=== PATIENT | female | born 1960 | race Hispanic/Latino ===

== ENCOUNTER → 2020-01-13 08:53 | Outpatient (CLI) | payer BC, OTHER, SELFPAY ==
--- NOTE | 2020-01-13 08:57 | DI.MG.S_ITS ---
BILATERAL DIGITAL SCREENING MAMMOGRAM 3D/2D WITH CAD: 01/13/2020 CLINICAL: Routine screening. Family history of breast cancer. Comparison is made to exams dated: 11/26/2017 mammogram, 02/18/2017 mammogram, and 11/21/2018 mammogram - [facility]. The tissue of both breasts is heterogeneously dense. This may lower the sensitivity of mammography. Current study was also evaluated with a Computer Aided Detection (CAD) system. No significant masses, calcifications, or other findings are seen in either breast. There has been no significant interval change. IMPRESSION: NEGATIVE There is no mammographic evidence of malignancy. A 1 year screening mammogram is recommended. This exam was interpreted at Station ID: [id number]. NOTE: For mammograms, a report in lay terms will be sent to the patient. Approximately 15% of breast malignancies will not be visualized mammographically. In the management of a palpable breast mass, a negative mammogram must not discourage biopsy of a clinically suspicious lesion. Electronically Signed By: Bess mackay/apple:01/13/2020 09:59:38 copy to: ALBINA GONZALEZ letter sent: Normal Exam ACR BI-RADS Category 1: Negative 3341F
== END ==
PROVIDERS: Referring Provider Physician Assistant Medical; Visit Provider Physician Assistant Medical
DX: Z12.31 Encounter for screening mammogram for malignant neoplasm of breast (principal); Z80.3 Family history of malignant neoplasm of breast
CPT/HCPCS: 77063; 77067

== ENCOUNTER → 2020-11-23 08:06 | Outpatient (CLI) | payer BC, OTHER, SELFPAY ==
[2020-11-23 08:57] LABS: Hematocrit 41.1 % (36-46); Hemoglobin 13.8 g/dL (12.0-16.0); Mean Corpuscular HGB Conc 33.6 % (30-36); Mean Corpuscular Hemoglobin 31.5 PG (26-34); Mean Corpuscular Volume 93.7 fL (80-100); Platelet Count 221 X10^3/uL (150-400); Red Blood Cell Count 4.38 X10^6/uL (4.0-5.2); Red Cell Distribution Width 13.1 % (11.6-14.8); White Blood Cell Count 6.3 X10^3/uL (4.5-11.0)
[2020-11-23 09:09] LABS: Alanine Aminotransferase 17 IU/L (<35); Albumin 4.3 g/dL (3.5-5.0); Albumin Globulin Ratio 1.4 (1.0-2.8); Alkaline Phosphatase 106 U/L (38-126); Aspartate Aminotransferase 19 IU/L (14-36); BUN Creatinine Ratio 19.7 (6-22); Bilirubin Total 0.5 mg/dL (0.2-1.3); Blood Urea Nitrogen 12 mg/dL (7-17); Calcium 9.1 mg/dL (8.4-10.2); Carbon Dioxide 29 mmol/L (22-32); Chloride 105 mmol/L (98-107); Cholesterol 208 mg/dL (140-199); Estimated Glomerular Filt Rate > 60.0 mL/min (>60); Glucose 95 mg/dL (70-100); HDL Cholesterol 34 mg/dL (40-60); HEMOLYSIS < 15 (0-50); LDL Cholesterol Calculated 131 mg/dL (<100); Potassium 4.1 mmol/L (3.4-5.1); Sodium 138 mmol/L (137-145); Total Protein 7.3 g/dL (6.3-8.2); Triglycerides 214 mg/dL (35-150)
[2020-11-23 09:15] LABS: Hemoglobin A1C% w Est Avg Glu 5.6 % (4.0-6.0)
[2020-11-23 09:40] LABS: TSH w/ Reflex to FT4 2.64 uIU/mL (0.47-4.68)
[2020-11-24 07:36] LABS: Hepatitis B Core AB w/Reflex Negative (Negative)
== END ==
PROVIDERS: PCP Registered Nurse Diabetes Educator; Referring Provider Registered Nurse Diabetes Educator; Visit Provider Registered Nurse Diabetes Educator
DX: Z00.00 Encounter for general adult medical examination without abnormal findings (principal); R73.9 Hyperglycemia, unspecified
CPT/HCPCS: 36415; 80053; 80061; 83036; 84443; 85027; 86704

== ENCOUNTER → 2021-02-08 08:38 | Outpatient (CLI) | payer BC, OTHER, SELFPAY ==
--- NOTE | 2021-02-08 08:40 | DI.MG.S_ITS ---
BILATERAL DIGITAL SCREENING MAMMOGRAM 3D/2D WITH CAD: 02/08/2021 CLINICAL: Routine screening. Family history of breast cancer. Comparison is made to exams dated: 01/13/2020 mammogram - [facility], 11/21/2018 mammogram, 11/26/2017 mammogram, and 02/18/2017 mammogram - [facility]. The tissue of both breasts is heterogeneously dense. This may lower the sensitivity of mammography. Current study was also evaluated with a Computer Aided Detection (CAD) system. No significant masses, calcifications, or other findings are seen in either breast. There has been no significant interval change. IMPRESSION: NEGATIVE There is no mammographic evidence of malignancy. A 1 year screening mammogram is recommended. This exam was interpreted at Station ID: [id number]. NOTE: For mammograms, a report in lay terms will be sent to the patient. Approximately 15% of breast malignancies will not be visualized mammographically. In the management of a palpable breast mass, a negative mammogram must not discourage biopsy of a clinically suspicious lesion. Electronically Signed By: Jonnie maurer/apple:02/10/2021 08:02:56 copy to: ALBINA GONZALEZ letter sent: Normal Exam ACR BI-RADS Category 1: Negative 3341F
[2021-02-10 17:00] LABS: Hep C Virus Ab w/Reflex Quant NEGATIVE s/c (NEGATIVE)
== END ==
PROVIDERS: PCP Registered Nurse Diabetes Educator; Referring Provider Registered Nurse Diabetes Educator; Visit Provider Registered Nurse Diabetes Educator
DX: Z12.31 Encounter for screening mammogram for malignant neoplasm of breast; Z80.3 Family history of malignant neoplasm of breast; Z00.00 Encounter for general adult medical examination without abnormal findings; Z11.59 Encounter for screening for other viral diseases
CPT/HCPCS: 36415; 77063; 77067; 86803

== ENCOUNTER → 2022-02-02 09:46 | Outpatient (CLI) | payer BC, OTHER, SELFPAY ==
[2022-02-02 11:12] LABS: Hematocrit 39.9 % (36-46); Hemoglobin 13.3 g/dL (12.0-16.0); Mean Corpuscular HGB Conc 33.4 % (30-36); Mean Corpuscular Hemoglobin 31.2 PG (26-34); Mean Corpuscular Volume 93.5 fL (80-100); Platelet Count 235 X10^3/uL (150-400); Red Blood Cell Count 4.27 X10^6/uL (4.0-5.2); Red Cell Distribution Width 13.5 % (11.6-14.8); White Blood Cell Count 6.6 X10^3/uL (4.5-11.0)
[2022-02-02 11:19] LABS: Hemoglobin A1C% w Est Avg Glu 5.5 % (4.0-6.0)
[2022-02-02 11:21] LABS: Alanine Aminotransferase 15 IU/L (<35); Albumin 4.2 g/dL (3.5-5.0); Albumin Globulin Ratio 1.4 (1.0-2.8); Alkaline Phosphatase 91 U/L (38-126); Aspartate Aminotransferase 18 IU/L (14-36); BUN Creatinine Ratio 16.7 (6-22); Bilirubin Total 0.8 mg/dL (0.2-1.3); Blood Urea Nitrogen 10 mg/dL (7-17); Calcium 9.1 mg/dL (8.4-10.2); Carbon Dioxide 30 mmol/L (22-32); Chloride 104 mmol/L (98-107); Cholesterol 208 mg/dL (140-199); Estimated Glomerular Filt Rate > 60.0 mL/min (>60); Glucose 92 mg/dL (80-110); HDL Cholesterol 35 mg/dL (40-60); HEMOLYSIS < 15 (0-50); LDL Cholesterol Calculated 135 mg/dL (<100); Potassium 3.9 mmol/L (3.4-5.1); Sodium 137 mmol/L (137-145); Total Protein 7.2 g/dL (6.3-8.2); Triglycerides 192 mg/dL (35-150)
[2022-02-02 12:15] LABS: TSH w/ Reflex to FT4 2.22 uIU/mL (0.47-4.68)
== END ==
PROVIDERS: PCP Registered Nurse Diabetes Educator; Referring Provider Registered Nurse Diabetes Educator; Visit Provider Registered Nurse Diabetes Educator
DX: E78.5 Hyperlipidemia, unspecified (principal); Z86.32 Personal history of gestational diabetes
CPT/HCPCS: 36415; 80053; 80061; 83036; 84443; 85027

== ENCOUNTER → 2022-02-20 07:42 | Outpatient (CLI) | payer OTHER, BC, SELFPAY ==
--- NOTE | 2022-02-20 | DI.MG.S_ITS ---
BILATERAL DIGITAL SCREENING MAMMOGRAM 3D/2D WITH CAD: 02/20/2022 CLINICAL: Routine screening. Family history of breast cancer. Comparison is made to exams dated: 02/08/2021 mammogram, 01/13/2020 mammogram - [facility], and 11/21/2018 mammogram - [facility]. The tissue of both breasts is heterogeneously dense. This may lower the sensitivity of mammography. Current study was also evaluated with a Computer Aided Detection (CAD) system. No significant masses, calcifications, or other findings are seen in either breast. There has been no significant interval change. IMPRESSION: NEGATIVE There is no mammographic evidence of malignancy. A 1 year screening mammogram is recommended. This exam was interpreted at Station ID: [id number]. NOTE: For mammograms, a report in lay terms will be sent to the patient. Approximately 15% of breast malignancies will not be visualized mammographically. In the management of a palpable breast mass, a negative mammogram must not discourage biopsy of a clinically suspicious lesion. Electronically Signed By: Luis Almaguer acr/apple:02/20/2022 08:23:03 copy to: ALBINA GONZALEZ letter sent: Normal Exam ACR BI-RADS Category 1: Negative 3341F
== END ==
PROVIDERS: PCP Registered Nurse Diabetes Educator; Referring Provider Registered Nurse Diabetes Educator; Visit Provider Registered Nurse Diabetes Educator
DX: Z12.31 Encounter for screening mammogram for malignant neoplasm of breast (principal); Z80.3 Family history of malignant neoplasm of breast
CPT/HCPCS: 77063; 77067

== ENCOUNTER → 2022-03-12 15:01 | Outpatient (CLI) | payer OTHER, BC, SELFPAY ==
--- NOTE | 2022-03-12 15:07 | DIET.CONS ---
Dietary Consultation Note Assessment: 61[address] visit for help with hyperlipidemia and weight management. 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 Commutes 2.5h to work each way, 5d/w. Pt knows this is difficult schedule for work/life balance, but plans to retire in 2-3y so wants to stick it out because she will have more comfortable financial jail. Pt TC 209, LDL 135, HDL 34, A1c 5.5 goal is size 10-12, has been 3-4y since wearing half of closet Wt: 228# Usual Day: wakes 2:45am doesn't eat or drink until at office 6:30am water, water with crystal light Breakfast [facility] [employer] or home or crackers and cheese drinks black or herbal teac maybe shortbread cookies lunch 12-2pm 4d/w brings lunch: leftovers from goes out to eat c office: anything thats open on way home from work nothing to eat once home bowl cereal, scrambed eggs, boiled egg c crackers sometimes bagged chopped salad usually two meals on weekend popcorn in evening and almonds/walnuts RD Impression: Pt sedentary with long work/commute schedule and reliance as well as enjoyment of eating out leading to skewed labs and weight gain. Pt can intentionally walk more during daytime hours, curate more supportive snacks (vs cookies) with focus on increased fiber and protein to support healthy body and healthy weight. Pt doesn't seem to be overeating portion sizes. Nutrition Diagnosis: altered nutrition related laboratory values r/t inadequate intake dietary fiber and protein, physical inactivity aeb Pt TC 209, LDL 135, HDL 34, A1c 5.5, pt commutes 5h daily to work on bus, [employer], [employer]. Interventions: 1. Educated pt on the role of dietary fiber in healthy cholesterol levels, BG regulation, and weight control. Set goal for 25g/d, provided handout on fiber content of foods and recc pt track a few days in myfitnesspal to assess baseline fiber intake and plan for increasing to goal. 2. Educated pt on adequate protein intake for supporting muscle mass and satiety. Pt to eat 75-85g PRO/d and track in mp to ensure meeting goals. 3. Discussed 8k step goal. Pt has fitbit, not currently wearing. Pt will walk [address]th in [place] at lunch this summer to increase steps. EER: 75-85 grams protein, 25g fiber/day Monitoring/Evaluations: telehealth f/u in 2w Electronically Signed by: Kimberly Tolentino 03/12/22 15:07 Clinical Dietitian [address] [address]
--- NOTE | 2022-04-22 11:56 | DIET.PN1 ---
Dietary Progress Note 4w telehealth f/u for 61y F seeking nutrition counseling for hyperlipidemia and overweight. 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 Pt Having trouble meeting protein and fiber goals. Always thought she was a good protein eater so feels surprised. Drinking protein drink now Weekend eggs for breakfast then a meal around 3pm- feels she is better with protein, fiber, and exercise on weekends. Is walking 3mi [employer] forte c spouse on weekends. Pt reports weekdays very little protein. Pt reports snacks as crackers or chips. Pt going to start walking with coworker at lunch now that the weather is nice. Doesn?t hit 8k steps every day but trying most days and wearing her fitbit. Interventions: 1. Idea generated ways to get protein and fiber at work. Discussed going to [employer] and reading labels of their grab n go items as she often chooses these on a daily basis. Pt bring snacks to work: carrots c hummus, grass fed beef sticks, yogurt. 2. Pt enjoys beans, used to eat more. Encouraged pt to add 1/2 c beans to evening mini meal (usually eggs and crackers) sub egg c beans. f/u telehealth scheduled in 4w to continue education and problem solve barriers. Electronically Signed by: Kimberly Tolentino 04/22/22 11:56 Clinical Dietitian [place] [id number] [place] [address]
== END ==
PROVIDERS: PCP Registered Nurse Diabetes Educator; Referring Provider Registered Nurse Diabetes Educator; Visit Provider Registered Nurse Diabetes Educator
DX: E78.5 Hyperlipidemia, unspecified (principal); Z71.3 Dietary counseling and surveillance
CPT/HCPCS: 97802

== ENCOUNTER → 2022-04-22 11:35 | Outpatient (CLI) | payer OTHER, SELFPAY | PROVIDERS: PCP Registered Nurse Diabetes Educator; Referring Provider Registered Nurse Diabetes Educator; Visit Provider Registered Nurse Diabetes Educator | DX: E78.5 Hyperlipidemia, unspecified (principal) | CPT/HCPCS: 97803 ==

== ENCOUNTER → 2022-12-28 06:43 | Outpatient (CLI) | payer OTHER, SELFPAY ==
--- NOTE | 2022-12-28 06:45 | DI.US.S_ITS ---
PROCEDURE: US PELVIC COMPLETE INDICATIONS: PMB TECHNIQUE: Real-time scanning was performed of the pelvic organs, with image documentation. Additional endovaginal scanning was necessary due to incomplete visualization of the adnexal and endometrial structures by transabdominal scanning. COMPARISON: None. FINDINGS: Uterus: Uterus is anteverted and normal in size at 8.4 x 4.5 x 5.8 cm. The myometrium is heterogeneous with multiple fibroids. The endometrium measures 13 mm combined thickness. A midline posterior predominantly submucosal fibroid measures 1.3 x 1.1 x 1.7 cm. Additional midline posterior submucosal fibroid measures 1.4 x 0.8 x 1.6 cm. A right anterior intramural fibroid measures 1.3 x 0.9 x 1.2 cm. Ovaries: The ovaries are not well visualized. Other: No pathologic free abdominal or pelvic fluid. IMPRESSION: 1. Endometrium is suboptimally visualized due to uterine fibroids, but may measure up to 13 mm in thickness. Consider further evaluation with endometrial biopsy in the setting of postmenopausal bleeding versus pelvic MRI for further evaluation or follow-up ultrasound. 2. Multiple uterine fibroids, some of which appear to be submucosal in location. MRI of the pelvis could be performed for further characterization and localization if indicated clinically. We strive to produce accurate, complete, and clear reports of imaging services. To assist us in improving patient care, this report was composed using standard report templates and voice recognition software. Therefore, it may contain abnormal punctuation, insertions and/or omissions. Occasional wrong-word or sound-alike substitutions may occur. Though we review the report and make efforts to correct it, we do recommend that the report be read carefully in proper context to recognize any text inaccuracies. Approved by: Joe Luther M.D. on 12/28/2022 at 15:39
== END ==
PROVIDERS: Family Provider Registered Nurse Diabetes Educator; PCP Registered Nurse Diabetes Educator; Referring Provider Registered Nurse Diabetes Educator; Visit Provider Registered Nurse Diabetes Educator
DX: N95.0 Postmenopausal bleeding (principal); D25.1 Intramural leiomyoma of uterus; D25.0 Submucous leiomyoma of uterus
CPT/HCPCS: 76830; 76856

== ENCOUNTER → 2023-01-30 08:03 | Outpatient (CLI) | payer OTHER, SELFPAY ==
[2023-01-30 08:52] LABS: Hematocrit 37.4 % (36-46); Hemoglobin 12.7 g/dL (12.0-16.0); Mean Corpuscular HGB Conc 33.9 % (30-36); Mean Corpuscular Hemoglobin 31.7 PG (26-34); Mean Corpuscular Volume 93.3 fL (80-100); Platelet Count 231 X10^3/uL (150-400); Red Blood Cell Count 4.01 X10^6/uL (4.0-5.2); Red Cell Distribution Width 13.9 % (11.6-14.8); White Blood Cell Count 6.9 X10^3/uL (4.5-11.0)
[2023-01-30 09:11] LABS: Hemoglobin A1C% w Est Avg Glu 5.4 % (4.0-6.0)
[2023-01-30 09:15] LABS: Alanine Aminotransferase 27 IU/L (<35); Albumin Globulin Ratio 1.4 (1.0-2.8); Alkaline Phosphatase 100 U/L (38-126); Aspartate Aminotransferase 23 IU/L (14-36); BUN Creatinine Ratio 17.2 (6-22); Bilirubin Total 0.6 mg/dL (0.2-1.3); Blood Urea Nitrogen 11 mg/dL (7-17); Calcium 8.5 mg/dL (8.4-10.2); Carbon Dioxide 30 mmol/L (22-32); Chloride 102 mmol/L (98-107); Cholesterol 194 mg/dL (140-199); Estimated Glomerular Filt Rate > 60 mL/min (>60); Globulin 2.9 g/dL (1.7-4.1); Glucose 91 mg/dL (80-110); HDL Cholesterol 38 mg/dL (40-60); HEMOLYSIS < 15 (0-50); LDL Cholesterol Calculated 110 mg/dL (<100); Potassium 4.3 mmol/L (3.4-5.1); Sodium 138 mmol/L (137-145); Total Protein 6.9 g/dL (6.3-8.2); Triglycerides 231 mg/dL (35-150)
[2023-01-30 09:47] LABS: TSH w/ Reflex to FT4 1.89 uIU/mL (0.47-4.68)
== END ==
PROVIDERS: Family Provider Registered Nurse Diabetes Educator; PCP Registered Nurse Diabetes Educator; Referring Provider Registered Nurse Diabetes Educator; Visit Provider Registered Nurse Diabetes Educator
DX: E78.5 Hyperlipidemia, unspecified (principal); Z86.32 Personal history of gestational diabetes; Z68.41 Body mass index [BMI] 40.0-44.9, adult
CPT/HCPCS: 36415; 80053; 80061; 83036; 84443; 85027

== ENCOUNTER 2023-10-08 08:31 | Emergency (ER) | payer OTHER, SELFPAY ==
[2023-10-08 08:42] VITALS: BP 142/88; PULSE 74; RESP 16; TEMP 36.9; O2SAT 97; BMI 42.0
--- NOTE | 2023-10-08 08:44 | DI.RAD.S_ITS ---
PROCEDURE: XR FINGER RT MIN 2V INDICATIONS: pain, swelling, unk trauma TECHNIQUE: AP hand, 2 views of the thumb. acquired. COMPARISON: None. FINDINGS: Bones: No fractures or dislocations. No suspicious bony lesions. Mild degenerative change at the MCP joint. Soft tissues: No suspicious soft tissue calcifications. IMPRESSION: No acute bony abnormality. Mild thumb MCP joint degenerative change. Dictated by: Marco Webb M.D. on 10/08/2023 at 9:44 Approved by: Marco Webb M.D. on 10/08/2023 at 9:50
[2023-10-08 09:12] VITALS: PULSE 72
--- NOTE | 2023-10-08 09:57 | ED_ITS ---
HPI - General Adult General Chief complaint: Extremity Injury, Upper Stated complaint: finger/lines showed up on face Time Seen by Provider: 10/08/23 09:45 History of Present Illness HPI narrative: 63-year-old female complaining of pain and ?clicking? in her right thumb. She is had this for several days. This is not associated with any acute injury or change in her baseline activity. 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 She is not had any fevers she is not had similar problems in the past. Related Data Previous Rx's Medication Instructions Recorded varicella-zoster glycoE [id number] 0.5 ml IM ONCE #1 ea 11/18/20 adj(PF) 50 mcg/0.5 mL IM susp, kit (Shingrix (PF)) clobetasol 0.05 % topical ointment 1 applic topical BEDTIME PRN 02/09/23 lichen sclerosus #45 grams Allergies Allergy/AdvReac Type Severity Reaction Status Date / Time No Known Drug Allergies Allergy Verified 02/12/23 13:26 Patient History Medical History Acinic cell carcinoma BMI 40.0-44.9, adult Dyslipidemia History of gestational diabetes Lichen sclerosus Obesity Vertigo (~2007) Surgical History Anesthesia History of surgery (~04/2014) Family History Father Dementia Frail elderly Cancer Diabetes mellitus History of heart disease Mental health problem Stroke Mother Cancer History of heart disease Sister Lupus Glaucoma Breast cancer Sister Rheumatoid arthritis Grandfather Cancer Grandmother Diabetes mellitus Stroke Social History Smoking Status: Former smoker Smoking Status: Former smoker Exam Initial Vital Signs Initial Vital Signs: Vital Signs Temperature 98.4 F 10/08/23 08:42 Pulse Rate 74 10/08/23 08:42 Respiratory Rate 16 10/08/23 08:42 Blood Pressure 142/88 H 10/08/23 08:42 Pulse Oximetry 97 10/08/23 08:42 Oxygen Delivery Method Room Air 10/08/23 08:42 Const General: cooperative, healthy appearing, comfortable and No acute distress Resp Effort & Inspection: normal respiratory effort Skin General: no rashes or lesions noted Neuro General: patient alert, patient awake and patient oriented x3 Extrem Other: Right thumb is without swelling deformity or discoloration. Has good active range of motion does seem like there is little crepitance in the flexor tendon with passive range of motion. Capillary refill and sensation are intact. No tenderness of the wrist. Course Orders Ordered: ED Orders 10/08/23 08:44 XR finger RT min 2V Stat Vital Signs Vital signs: Vital Signs - 8 hr 10/08/23 08:42 10/08/23 09:12 Temperature 98.4 F Pulse Rate 74 Pulse Rate [Right Radial] 72 Respiratory Rate 16 Blood Pressure 142/88 H Pulse Oximetry 97 Oxygen Delivery Method Room Air Medical Decision Making Imaging Data Extremity x-ray #1: My Impression: Right hand shows no acute fracture or dislocation no evidence of osteomyelitis on my independent review MDM Narrative Medical decision making narrative: 63-year-old female with atraumatic thumb pain. Differential includes cellulitis, tendinitis, fracture, gout, arthritis. No fracture seen on x-ray, no inflammatory changes seen on exam. History suggests likely tendinitis arthritis as possible both will be treated with immobilization and anti- inflammatories. Recommended she follow up with primary care Discharge Plan Departure Patient Disposition: Home Clinical Impression: Thumb tendonitis Activity Restrictions/Additional Instructions: Examination today is reassuring. No serious bony injury is seen. I think it is safe for you to go home and I recommend immobilization and anti-inflammatories. We provided a thumb splint that you can wear until symptoms have improved. Additionally, I recommend you take ibuprofen 600 mg 3 times a day take this regularly it is best to take it with food. Regular dosing of ibuprofen will allow for the anti-inflammatory action of the medication to work. Take it regularly for at least a week. Also I recommend that you follow-up as soon as possible with your primary care doctor. Prescriptions: No Action Shingrix (PF) 50 mcg/0.5 mL suspension for reconstitution 0.5 ml IM ONCE Qty: 1 1RF Rx Instructions: administered as a 2-dose series at 0 and 2 to 6 months clobetasol 0.05 % ointment 1 applic topical BEDTIME PRN (Reason: lichen sclerosus) Qty: 45 1RF Rx Instructions: Apply to vulva, perianal area Referrals: Ten Barron ARNP [Primary Care Provider] - Stand Alone Forms: Patient Portal/API
[2023-10-08 10:03] VITALS: BP 146/88; PULSE 82; RESP 16; TEMP 36.7; O2SAT 98
== END 2023-10-08 10:08 | disposition home or self-care (01) ==
PROVIDERS: Emergency Provider Emergency Medicine; Family Provider Registered Nurse Diabetes Educator; PCP Registered Nurse Diabetes Educator
DX: M77.8 Other enthesopathies, not elsewhere classified (principal)
CPT/HCPCS: 73140; 99281; 99283

== ENCOUNTER → 2023-10-21 14:49 | Outpatient (CLI) | payer OTHER, SELFPAY ==
[2023-10-21 16:43] LABS: Add Manual Diff / Slide Review NO; Basophils Absolute Auto 0 /uL (0-100); Basophils Percent Auto 0.5 % (0-2); Eosinophils Absolute Auto 100 /uL (0-450); Eosinophils Percent Auto 1.5 % (2-4); Hematocrit 38.7 % (36-46); Hemoglobin 13.2 g/dL (12.0-16.0); Lymphocytes Absolute Auto 2200 /uL (1100-4500); Lymphocytes Percent Auto 25.7 % (25-40); Mean Corpuscular HGB Conc 34.1 % (30-36); Mean Corpuscular Hemoglobin 31.8 PG (26-34); Mean Corpuscular Volume 93.2 fL (80-100); Monocytes Absolute Auto 400 /uL (0-900); Neutrophils Absolute Auto 5700 /uL (1500-7000); Neutrophils Percent Auto 67.3 % (50-75); Platelet Count 251 X10^3/uL (150-400); Red Blood Cell Count 4.15 X10^6/uL (4.0-5.2); White Blood Cell Count 8.5 X10^3/uL (4.5-11.0)
[2023-10-21 16:44] LABS: Hemoglobin A1C% w Est Avg Glu 5.3 % (4.0-6.0)
[2023-10-21 16:45] LABS: D Dimer 308 ng/ml (<500)
[2023-10-21 16:53] LABS: Alanine Aminotransferase 21 IU/L (<35); Albumin 4.1 g/dL (3.5-5.0); Albumin Globulin Ratio 1.4 (1.0-2.8); Alkaline Phosphatase 117 U/L (38-126); Aspartate Aminotransferase 19 IU/L (14-36); BUN Creatinine Ratio 20.7 (6-22); Bilirubin Total 0.5 mg/dL (0.2-1.3); Blood Urea Nitrogen 12 mg/dL (7-17); C-Reactive Protein Quant 1.1 mg/dL (<1.0); Calcium 9.6 mg/dL (8.4-10.2); Carbon Dioxide 26 mmol/L (22-32); Chloride 105 mmol/L (98-107); Estimated Glomerular Filt Rate > 60 mL/min (>60); Globulin 2.9 g/dL (1.7-4.1); Glucose 78 mg/dL (80-110); HEMOLYSIS < 15 (0-50); Potassium 4.2 mmol/L (3.4-5.1); Sodium 138 mmol/L (137-145)
[2023-10-21 17:09] LABS: Erythrocyte Sedimentation Rate 20 MM/HR (0-20)
[2023-10-21 17:21] LABS: TSH w/ Reflex to FT4 2.55 uIU/mL (0.47-4.68)
== END ==
PROVIDERS: Family Provider Registered Nurse Diabetes Educator; PCP Registered Nurse Diabetes Educator; Referring Provider Family Medicine; Visit Provider Family Medicine
DX: R06.02 Shortness of breath (principal); R00.1 Bradycardia, unspecified
CPT/HCPCS: 36415; 80053; 83036; 84443; 85025; 85379; 85651; 86140

== ENCOUNTER → 2023-10-21 15:17 | Outpatient (CLI) | payer OTHER, SELFPAY ==
--- NOTE | 2023-10-21 15:19 | DI.RAD.S_ITS ---
PROCEDURE: XR CHEST 2V INDICATIONS: Shortness of breath TECHNIQUE: 2 views of the chest were acquired. COMPARISON: None. FINDINGS: Surgical changes and devices: None. Lungs and pleura: Lungs are clear. No pleural effusions or pneumothorax. Mediastinum: Mediastinal contours are normal. Heart size is normal. Bones and chest wall: No suspicious bony abnormalities. Soft tissues appear unremarkable. IMPRESSION: No acute cardiopulmonary process. Dictated by: Miah Joya M.D. on 10/21/2023 at 18:43 Approved by: Miah Joya M.D. on 10/21/2023 at 18:44
== END ==
PROVIDERS: Family Provider Registered Nurse Diabetes Educator; PCP Registered Nurse Diabetes Educator; Referring Provider Family Medicine; Visit Provider Family Medicine
DX: R06.02 Shortness of breath (principal); R00.1 Bradycardia, unspecified
CPT/HCPCS: 36415; 71046; 80053; 83036; 84443; 85025; 85379; 85651; 86140

== ENCOUNTER → 2024-02-05 09:21 | Outpatient (CLI) | payer OTHER, SELFPAY ==
[2024-02-05 11:06] LABS: Hematocrit 39.1 % (36-46); Hemoglobin 13.1 g/dL (12.0-16.0); Mean Corpuscular HGB Conc 33.5 % (30-36); Mean Corpuscular Hemoglobin 31.2 PG (26-34); Platelet Count 231 X10^3/uL (150-400); Red Cell Distribution Width 13.6 % (11.6-14.8); White Blood Cell Count 6.9 X10^3/uL (4.5-11.0)
[2024-02-05 11:16] LABS: Hemoglobin A1C% w Est Avg Glu 5.5 % (4.0-6.0)
[2024-02-05 11:30] LABS: Alanine Aminotransferase 16 IU/L (<35); Albumin 3.9 g/dL (3.5-5.0); Albumin Globulin Ratio 1.4 (1.0-2.8); Alkaline Phosphatase 104 U/L (38-126); Aspartate Aminotransferase 19 IU/L (14-36); BUN Creatinine Ratio 15.9 (6-22); Bilirubin Total 0.7 mg/dL (0.2-1.3); Blood Urea Nitrogen 10 mg/dL (7-17); Carbon Dioxide 28 mmol/L (22-32); Chloride 107 mmol/L (98-107); Cholesterol 196 mg/dL (140-199); Estimated Glomerular Filt Rate > 60 mL/min (>60); Globulin 2.8 g/dL (1.7-4.1); Glucose 86 mg/dL (80-110); HDL Cholesterol 41 mg/dL (40-60); HEMOLYSIS < 15 (0-50); LDL Cholesterol Calculated 118 mg/dL (<100); Potassium 4.5 mmol/L (3.4-5.1); Sodium 139 mmol/L (137-145); Total Protein 6.7 g/dL (6.3-8.2); Triglycerides 183 mg/dL (35-150)
[2024-02-05 12:03] LABS: TSH w/ Reflex to FT4 1.65 uIU/mL (0.47-4.68)
== END ==
PROVIDERS: Family Provider Registered Nurse Diabetes Educator; PCP Registered Nurse Diabetes Educator; Referring Provider Registered Nurse Diabetes Educator; Visit Provider Registered Nurse Diabetes Educator
DX: E78.5 Hyperlipidemia, unspecified (principal); Z86.32 Personal history of gestational diabetes; Z68.41 Body mass index [BMI] 40.0-44.9, adult
CPT/HCPCS: 36415; 80053; 80061; 83036; 84443; 85027

== ENCOUNTER → 2024-03-04 11:12 | Outpatient (CLI) | payer OTHER, SELFPAY ==
--- NOTE | 2024-03-04 11:14 | DI.RAD.S_ITS ---
PROCEDURE: XR CERVICAL SPINE 4V OR 5V INDICATIONS: eval, poss RUE radiculopathy TECHNIQUE: 5 views of the cervical spine acquired. COMPARISON: None. FINDINGS: Bones: No fractures or dislocations to the T1 level. Oblique images demonstrate mild foraminal stenoses on the left C5-C6. Mild disc height loss of the lower cervical spine. Soft tissues: No prevertebral soft tissue swelling. IMPRESSION: Mild left foraminal narrowing at C5-C6. Dictated by: Dago Obando M.D. on 03/04/2024 at 17:12 Approved by: Dago Obando M.D. on 03/04/2024 at 17:14
--- NOTE | 2024-03-04 11:14 | DI.RAD.S_ITS ---
PROCEDURE: XR SHOULDER RT MIN 2V INDICATIONS: eval RUE pain TECHNIQUE: 3 views of the shoulder were acquired. COMPARISON: None. FINDINGS: Bones: No fractures or dislocations. No suspicious bony lesions. Visualized ribs appear intact. Moderate acromioclavicular and mild glenohumeral degenerative narrowing. No erosions. Soft tissues: No suspicious soft tissue calcifications. IMPRESSION: Acromioclavicular and glenohumeral arthritic change. Dictated by: Adrianna Marroquin M.D. on 03/05/2024 at 8:38 Approved by: Adrianna Marroquin M.D. on 03/05/2024 at 8:39
== END ==
LOC: RAD 11:13
PROVIDERS: Family Provider Registered Nurse Diabetes Educator; PCP Registered Nurse Diabetes Educator; Referring Provider Registered Nurse Diabetes Educator; Visit Provider Registered Nurse Diabetes Educator
DX: M48.02 Spinal stenosis, cervical region (principal); M79.601 Pain in right arm
CPT/HCPCS: 72050; 73030

== ENCOUNTER → 2024-05-13 08:23 | Outpatient (CLI) | payer OTHER, SELFPAY ==
--- NOTE | 2024-05-13 | DI.MG.S_ITS ---
BILATERAL DIGITAL SCREENING MAMMOGRAM 3D/2D WITH CAD: 05/13/2024 CLINICAL: Routine screening. Family history of breast cancer. Comparison is made to exams dated: 02/20/2022 mammogram, 02/08/2021 mammogram, and 01/13/2020 mammogram - [facility]. Both breasts are heterogeneously dense, which may obscure small masses (category c / 51-75% glandular tissue). Current study was also evaluated with a Computer Aided Detection (CAD) system. There is a new 0.6 cm oval equal density focal asymmetry in the left breast at 12 o'clock middle depth. No other significant masses, calcifications, or other findings are seen in either breast. IMPRESSION: INCOMPLETE: NEEDS ADDITIONAL IMAGING EVALUATION The new 0.6 cm oval equal density focal asymmetry in the left breast resembles a cyst or a lymph node and is indeterminate. Additional views with possible ultrasound are recommended. Based on Tyrer-Cuzick model (a risk assessment model), the patient's lifetime risk is 22.1% and her 10 year risk is 10.0%. If a patient has an elevated risk, a more comprehensive evaluation should be considered and/or a referral to a genetic counselor. The [place] [employer], [place] [employer], and NCCN Guidelines advise the consideration of Breast MRI as an adjunct to screening mammography in patients whose Lifetime risk to develop breast cancer is 20% or higher. This exam was interpreted at Station ID: [id number]. NOTE: For mammograms, a report in lay terms will be sent to the patient. Approximately 15% of breast malignancies will not be visualized mammographically. In the management of a palpable breast mass, a negative mammogram must not discourage biopsy of a clinically suspicious lesion. Electronically Signed By: Jay gonzalez/apple:05/15/2024 15:43:15 copy to: ALBINA GONZALEZ letter sent: Additional Imaging Needed ACR BI-RADS Category 0: Incomplete 3340F
== END ==
PROVIDERS: Family Provider Registered Nurse Diabetes Educator; PCP Registered Nurse Diabetes Educator; Referring Provider Registered Nurse Diabetes Educator; Visit Provider Registered Nurse Diabetes Educator
DX: Z12.31 Encounter for screening mammogram for malignant neoplasm of breast (principal); Z80.3 Family history of malignant neoplasm of breast; R92.333 Mammographic heterogeneous density, bilateral breasts
CPT/HCPCS: 77063; 77067

== ENCOUNTER → 2024-05-23 15:16 | Outpatient (CLI) | payer OTHER, SELFPAY ==
--- NOTE | 2024-05-23 21:52 | DI.NM.S_ITS ---
DATE OF SERVICE: 05/23/2024 STUDY: Exercise stress test. INDICATION: Exertional shortness of breath. CARDIAC STRESS: The patient underwent exercise stress test under the supervision of an attending staff. Patient walked on Mike protocol for 7 minutes and 2 seconds, achieved maximum heart rate of 159, which was 101% of target heart rate. Resting blood pressure 122/82 and peak blood pressure 200/90 mmHg. Baseline rhythm was sinus. During stress, no convincing ischemic EKG changes seen. No significant arrhythmias seen. The patient had dyspnea. 10.1 METS of workload. BETTE -23%. Lowest oxygen saturation during exercise was 91%. CONCLUSION: Normal hemodynamic response. Good exercise tolerance. No significant arrhythmias. The patient has shortness of breath during exercise. Oxygen saturation lowest during exercise was 91%. Correlate clinically and consider workup to rule out pulmonary etiology. Also get 2D echo to make sure there is no diastolic dysfunction. Myrna Ann - CORTEZ/jenna/VITA doc#: [id number]/job#: [id number] dd: 05/23/2024 17:10:00 dt: 05/23/2024 21:32:00 DICTATING /COPIES TO: Danyell Sepulveda MD COPIES MNE: JOI;
--- NOTE | 2024-05-23 21:52 | DI.NM.S_ITS ---
DATE OF SERVICE: NAME OF STUDY: Exercise stress test. DICTATION ENDS HERE. 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
== END ==
PROVIDERS: Family Provider Registered Nurse Diabetes Educator; PCP Registered Nurse Diabetes Educator; Referring Provider Registered Nurse Diabetes Educator; Visit Provider Registered Nurse Diabetes Educator
DX: R06.02 Shortness of breath (principal); R06.09 Other forms of dyspnea
CPT/HCPCS: 93017

== ENCOUNTER → 2024-06-05 | Outpatient (CLI) | payer OTHER, SELFPAY ==
--- NOTE | 2024-06-05 | DI.MG.S_ITS ---
UNILATERAL LEFT DIGITAL DIAGNOSTIC MAMMOGRAM 3D/2D WITH ADDITIONAL VIEWS: 06/05/2024 CLINICAL: Routine screening. Family history of breast cancer. Comparison is made to exams dated: 05/13/2024 mammogram, 02/20/2022 mammogram, and 02/08/2021 mammogram - [facility]. The left breast is heterogeneously dense, which may obscure small masses (category c / 51-75% glandular tissue). There is a 0.7 cm oval mass with a circumscribed margin in the left breast at 12 o'clock middle depth. This is seen in additional views. No other significant masses or calcifications are seen in the breast. IMPRESSION: INCOMPLETE: NEEDS ADDITIONAL IMAGING EVALUATION The 0.7 cm oval mass in the left breast is indeterminate. An ultrasound is recommended for further evaluation and is scheduled to immediately follow this examination. Based on Tyrer-Cuzick model (a risk assessment model), the patient's lifetime risk is 22.1% and her 10 year risk is 10.0%. If a patient has an elevated risk, a more comprehensive evaluation should be considered and/or a referral to a genetic counselor. The [place] [employer], [employer], and NCCN Guidelines advise the consideration of Breast MRI as an adjunct to screening mammography in patients whose Lifetime risk to develop breast cancer is 20% or higher. This exam was interpreted at Station ID: [id number]. NOTE: For mammograms, a report in lay terms will be sent to the patient. Approximately 15% of breast malignancies will not be visualized mammographically. In the management of a palpable breast mass, a negative mammogram must not discourage biopsy of a clinically suspicious lesion. Electronically Signed By: Cinda Maravilla M.D., Ph.D. eb/:06/05/2024 11:20:55 copy to: ALBINA GONZALEZ [facility] BI-RADS Category 0: Incomplete 3340F
--- NOTE | 2024-06-05 09:17 | DI.US.S_ITS ---
PROCEDURE: US BREAST LT LIMITED COMPARISON: None. INDICATIONS: Abnormal MM FINDINGS: IMPRESSION: Dictated by: Cinda Maravilla M.D.,Ph.D. on 06/05/2024 at 10:56 Approved by: Cinda Maravilla M.D.,Ph.D. on 06/05/2024 at 11:15
--- NOTE | 2024-06-05 10:36 | DI.US.S_ITS ---
Patient Name: VARGHESE AMAYA date: 1960 Sex: F Attending Physician: Anderson Indications: Date: 06/05/2024 11:23 At the request of: BRENDEN NUÑEZ Procedure: US breast LT limited LIMITED ULTRASOUND OF LEFT BREAST AND AXILLA: 06/05/2024 CLINICAL: Patient returns today to evaluate a focal asymmetry in the left breast. Comparison is made to exams dated: 06/05/2024 mammogram, 05/13/2024 mammogram, 02/20/2022 mammogram, 02/08/2021 mammogram, 01/13/2020 mammogram - [facility], and 11/21/2018 mammogram - [facility]. Color flow and real-time ultrasound of the left breast 1 o'clock, and axilla regions were performed. Gill scale images of the real-time examination were reviewed. No ultrasound correlate identified for the mammographic mass seen at 12 o'clock, middle depth on same day mammogram. An incidental benign intramammary lymph node is seen at 1 o'clock, 5 cm from the nipple. IMPRESSION: PROBABLY BENIGN Left breast 0.7 cm oval mass at 12 o'clock middle depth without definite ultrasound correlate. Recommend follow-up mammogram with repeat ultrasound in 6 months to demonstrate stability. Findings and recommendations were conveyed to the patient during today's evaluation. This exam was interpreted at Station ID: [id number]. Electronically Signed By: Cinda Maravilla M.D., Ph.D. eb/:06/05/2024 11:23:54 copy to: ALBINA GONZALEZ letter sent: Followup Recommended Continued Report - Page 2 of 2 Patient Name: VARGHESE AMAYA date: 1960 Sex: F Attending Physician: Anderson Indications: Date: 06/05/2024 11:23 At the request of: BRENDEN NUÑEZ Procedure: US breast LT limited Ultrasound BI-RADS: 3 Probably benign
== END ==
PROVIDERS: Family Provider Registered Nurse Diabetes Educator; PCP Registered Nurse Diabetes Educator; Referring Provider Registered Nurse Diabetes Educator; Visit Provider Registered Nurse Diabetes Educator
DX: R92.8 Other abnormal and inconclusive findings on diagnostic imaging of breast (principal); N63.25 Unspecified lump in the left breast, overlapping quadrants; R92.332 Mammographic heterogeneous density, left breast; Z80.3 Family history of malignant neoplasm of breast
CPT/HCPCS: 76642; 77065; G0279

== ENCOUNTER → 2024-06-09 08:02 | Outpatient (CLI) | payer OTHER, SELFPAY | LOC: RESP 08:02 | PROVIDERS: Family Provider Registered Nurse Diabetes Educator; PCP Registered Nurse Diabetes Educator; Referring Provider Registered Nurse Diabetes Educator; Visit Provider Registered Nurse Diabetes Educator | DX: R06.09 Other forms of dyspnea (principal); Z87.891 Personal history of nicotine dependence; R94.2 Abnormal results of pulmonary function studies | CPT/HCPCS: 94060; 94726; 94729 ==

== ENCOUNTER → 2024-07-07 07:44 | Outpatient (CLI) | payer OTHER, SELFPAY ==
--- NOTE | 2024-07-07 07:45 | DI.ECHO.S_ITS ---
[facility]+ [facility] : : [address] : : [place] : : [id number] : : Phone: [phone] Echocardiogram Report + + :Name: VARGHESE AMAYA Study Date: 07/07/2024 Height: 62 in : :Hospital ReadingLocation: Weight: 234 lb : : Gender: Female BSA: 2.0 m2 : :: 1960 Age: 63 yrs BP: 110/76 mmHg: :Reason For Study: DYSPNEA ON EXERTION : :Ordering Physician: SAVANNAH, : :BRENDEN Performed By: Torri Iqbal : :Referring: BRENDEN NUÑEZ : + + Interpretation Summary The ejection fraction is estimated to be 55-60%. There is no significant valvular heart disease. Procedure: A two-dimensional transthoracic echocardiogram with color flow and Doppler was performed. The study quality was technically adequate. There is no prior echocardiogram noted for this patient. The patient was in sinus rhythm with heart rates between 57-63 bpm during the exam. Left Ventricle: The left ventricle is normal in size and wall thickness. The ejection fraction is estimated to be 55-60%. Left ventricular wall motion is normal. Right Ventricle: The right ventricle is normal in size and function. Atria: The left atrial size is normal. Right atrial size is normal. There is no Doppler evidence for an interatrial shunt. Mitral Valve: The mitral valve is normal in structure and function. There is trace mitral regurgitation. Aortic Valve: The aortic valve is trileaflet. The aortic valve opens well. There is no aortic valve stenosis. No aortic regurgitation is present. Tricuspid Valve: The tricuspid valve is normal in structure and function. There is a trace or physiologic amount of tricuspid regurgitation. Pulmonary artery pressures cannot be estimated because of the lack of a measurable TR jet velocity. Pulmonic Valve: The pulmonic valve is not well seen, but is grossly normal. There is no pulmonic valvular regurgitation. Great Vessels: The aortic root is normal size. The dimensions of the ascending aorta are normal. The IVC is of normal diameter and collapses greater than 50% with a sniff. This suggests a low right atrial pressure of 3 mm Hg. Pericardium/ Pleura There is no pericardial effusion. There is no pleural effusion. MMode/2D Measurements & Calculations LVIDd: 4.1 cm LVOT diam: 2.0 cm LVIDs: 2.9 cm Ao root diam: 3.0 cm FS: 28.6 % asc Aorta Diam: 3.3 cm IVSd: 0.97 cm Ao Arch Diam (Prox Trans): 2.6 cm LVPWd: 1.0 cm LV person. diameter/BSA (cm/m^2): 2.0 LV sys. diameter/BSA (cm/m^2): 1.4 LA A2 area: 15.1 cm2 RA long axis: 3.9 cm LA A4 area: 17.1 cm2 RA area: 12.8 cm2 LA length (vol): 5.1 cm RA vol: 36.1 ml LA vol: 43.3 ml RA : 17.7 ml/m2 LA vol index: 21.2 ml/m2 IVC diam: 1.6 cm RVD1 (basal): 3.6 cm RVD2 (mid): 2.3 cm TAPSE: 2.3 cm Doppler Measurements & Calculations Ao V2 max: 152.6 cm/sec LVOT Max Ranjith: 106.0 cm/sec Ao V2 mean: 108.3 cm/sec LV V1 max P.5 mmHg Ao max P.3 mmHg LV V1 VTI: 28.2 cm Ao mean P.1 mmHg VALERIO(I,D): 2.6 cm2 Ao V2 VTI: 33.6 cm VALERIO(V,D): 2.1 cm2 sev ratio: 0.84 VALERIO indexed to BSA (cm^2/m^2): 1.3 MV E max ranjith: 86.4 cm/sec PA V2 max: 93.7 cm/sec MV A max ranjith: 78.6 cm/sec PA V2 mean: 66.1 cm/sec MV E/A: 1.1 PA mean P.9 mmHg Med Peak E' Ranjith: 8.8 cm/sec PA pr(Accel): 32.8 mmHg E/E' med: 9.8 Lat Peak E' Ranjith: 9.6 cm/sec E/E' lat: 9.0 E/e' average: 9.4 MV dec time: 0.31 sec SV(LVOT): 86.3 ml Reading Physician:10:34 AM
== END ==
LOC: ECHO 07:44
PROVIDERS: Family Provider Registered Nurse Diabetes Educator; PCP Registered Nurse Diabetes Educator; Referring Provider Registered Nurse Diabetes Educator; Visit Provider Registered Nurse Diabetes Educator
DX: R06.09 Other forms of dyspnea (principal)
CPT/HCPCS: 93306

== ENCOUNTER → 2024-11-24 14:25 | Outpatient (CLI) | payer OTHER, SELFPAY ==
--- NOTE | 2024-11-24 14:26 | DI.MRI.S_ITS ---
SCREENING BREAST MRI OF BOTH BREASTS: 11/24/2024 CLINICAL: High risk screening. PROCEDURE: MR BREAST BI WO/W CON INDICATIONS: high risk screening for breast CA TECHNIQUE: The patient was placed prone in a dedicated breast imaging coil. Precontrast axial STIR and 3D FLASH without fat saturation sequences were obtained. Both before and after bolus injection of contrast, sequential 1-minute axial 3D FLASH with fat saturation sequences for 3 time points, with subtraction images and maximum intensity projections (MIP's) generated. Delayed sagittal FLASH images with fat saturation were also obtained. Computer-aided detection, including computer algorithm analysis of MRI image data for lesion detection and characterization, pharmacokinetic analysis, with further physician review for interpretation, was performed. COMPARISON: Mammogram 05/13/2024, 06/05/2024 and left breast ultrasound 06/05/2024. FINDINGS: Image quality: Diagnostic. There is heterogeneous amount of fibroglandular tissue. There is moderate symmetric background parenchymal enhancement. Right breast: There is no suspicious enhancement or lymphadenopathy. Left breast: There is no suspicious enhancement or lymphadenopathy. IMPRESSION: NEGATIVE No MRI evidence of malignancy. Recommend diagnostic left breast mammogram and ultrasound for follow-up of previously described probably benign findings in the left breast (due November 2024). This exam was interpreted at Station ID: [id number]. Electronically Signed By: Cinda Maravilla M.D., Ph.D. eb/:11/27/2024 08:38:38 copy to: [facility] GONZALE[facility] BI-RADS Category 1: Negative
== END ==
LOC: MRI 14:26
PROVIDERS: Family Provider Registered Nurse Diabetes Educator; PCP Registered Nurse Diabetes Educator; Referring Provider Registered Nurse Diabetes Educator; Visit Provider Registered Nurse Diabetes Educator
DX: Z12.39 Encounter for other screening for malignant neoplasm of breast (principal)
CPT/HCPCS: 77049; A9579

== ENCOUNTER → 2025-01-12 13:07 | Outpatient (CLI) | payer OTHER, SELFPAY ==
--- NOTE | 2025-01-12 13:08 | DI.MG.S_ITS ---
UNILATERAL LEFT DIGITAL DIAGNOSTIC MAMMOGRAM 3D/2D SHORT-TERM FOLLOW-UP: 01/12/2025 CLINICAL: Patient returns for a 6 month follow up of the left breast. Comparison is made to exams dated: 11/24/2024 breast MRI, 06/05/2024 ultrasound, 06/05/2024 mammogram, and 05/13/2024 mammogram - [facility]. The breasts are heterogeneously dense, which may obscure small masses (category c / 51-75% glandular tissue). There is an oval mass with an obscured margin in the left breast at 12 o'clock middle depth. No other significant masses or calcifications are seen in the breast. IMPRESSION: INCOMPLETE: NEED ADDITIONAL IMAGING EVALUATION The oval mass or cyst in the left breast is indeterminate. A targeted ultrasound is recommended and will immediately follow. Based on Tyrer-Cuzick model (a risk assessment model), the patient's lifetime risk is 21.5% and her 10 year risk is 10.0%. If a patient has an elevated risk, a more comprehensive evaluation should be considered and/or a referral to a genetic counselor. The [place] [employer], [employer] [employer], and NCCN Guidelines advise the consideration of Breast MRI as an adjunct to screening mammography in patients whose Lifetime risk to develop breast cancer is 20% or higher. This exam was interpreted at Station ID: [id number]. NOTE: For mammograms, a report in lay terms will be sent to the patient. Approximately 15% of breast malignancies will not be visualized mammographically. In the management of a palpable breast mass, a negative mammogram must not discourage biopsy of a clinically suspicious lesion. Electronically Signed By: Abhay Palm M.D. slc/:01/16/2025 11:58:43 copy to: ALBINA GONZALEZ letter sent: Additional Imaging Needed ACR BI-RADS Category 0: Incomplete: Need Additional Imaging Evaluation
--- NOTE | 2025-01-12 13:08 | DI.US.S_ITS ---
LIMITED ULTRASOUND OF LEFT BREAST: 01/12/2025 CLINICAL: Patient returns today to evaluate a focal asymmetry in the left breast. Comparison is made to exams dated: 01/12/2025 mammogram, 11/24/2024 breast MRI, 06/05/2024 ultrasound, 06/05/2024 mammogram, 05/13/2024 mammogram, and 02/20/2022 mammogram - [facility]. Color flow and real-time ultrasound of the left breast 12-2 o'clock region were performed. Gill scale images of the real-time examination were reviewed. There is a 0.7 cm x 0.5 cm x 0.5 cm oval complicated cyst in the left breast at 12 o'clock anterior depth 2 cm from the nipple. This oval complicated cyst is hypoechoic with posterior acoustic enhancement. This correlates with mammography findings. Color flow imaging demonstrates that there is no vascularity present. There also is a 0.4 cm x 0.4 cm x 0.2 cm oval complicated cyst in the left breast at 2 o'clock middle depth 3 cm from the nipple. This oval complicated cyst is hypoechoic. This correlates as an incidental finding. Color flow imaging demonstrates that there is no vascularity present. Additionally, there is a benign 1 cm x 0.6 cm x 0.3 cm normal lymph node in the left breast at 1 o'clock middle depth 5 cm from the nipple. Color flow imaging demonstrates that there is vascularity present. IMPRESSION: PROBABLY BENIGN The 0.7 cm complicated cyst in the left breast at 12 o'clock anterior depth is probably benign. The 0.4 cm complicated cyst in the left breast at 2 o'clock middle depth is probably benign. The small intramammary lymph node in the left breast at 1 o'clock middle depth is benign. A follow-up mammogram and an ultrasound in 6 months is recommended to demonstrate stability. 05/13/2025 Patient will be due for right mammogram at that time. Exam findings were conveyed to the patient. This exam was interpreted at Station ID: [id number]. Electronically Signed By: Abhay Palm M.D. slc/:01/16/2025 11:59:12 copy to: ALBINA GONZALEZ letter sent: Followup Recommended ACR BI-RADS Category 3: Probably Benign
== END ==
PROVIDERS: Family Provider Registered Nurse Diabetes Educator; PCP Registered Nurse Diabetes Educator; Referring Provider Registered Nurse Diabetes Educator; Visit Provider Registered Nurse Diabetes Educator
DX: R92.8 Other abnormal and inconclusive findings on diagnostic imaging of breast (principal); R92.333 Mammographic heterogeneous density, bilateral breasts; N60.02 Solitary cyst of left breast
CPT/HCPCS: 76642; 77065; G0279

== ENCOUNTER → 2025-01-13 09:26 | Outpatient (CLI) | payer OTHER, SELFPAY ==
[2025-01-13 11:27] LABS: Hematocrit 39.7 % (36-46); Hemoglobin 13.1 g/dL (12.0-16.0); Mean Corpuscular HGB Conc 33.1 % (30-36); Mean Corpuscular Hemoglobin 31.2 PG (26-34); Mean Corpuscular Volume 94.1 fL (80-100); Platelet Count 221 X10^3/uL (150-400); Red Blood Cell Count 4.22 X10^6/uL (4.0-5.2); Red Cell Distribution Width 14.3 % (11.6-14.8); White Blood Cell Count 6.4 X10^3/uL (4.5-11.0)
[2025-01-13 12:08] LABS: Alanine Aminotransferase 20 IU/L (<35); Albumin 3.9 g/dL (3.5-5.0); Albumin Globulin Ratio 1.5 (1.0-2.8); Alkaline Phosphatase 101 U/L (38-126); Aspartate Aminotransferase 23 IU/L (14-36); BUN Creatinine Ratio 15.4 (6-22); Bilirubin Total 0.4 mg/dL (0.2-1.3); Blood Urea Nitrogen 10 mg/dL (7-17); Calcium 8.9 mg/dL (8.4-10.2); Carbon Dioxide 30 mmol/L (22-32); Chloride 105 mmol/L (98-107); Cholesterol 206 mg/dL (140-199); Estimated Glomerular Filt Rate > 60 mL/min (>60); Globulin 2.6 g/dL (1.7-4.1); Glucose 84 mg/dL (80-110); HDL Cholesterol 40 mg/dL (40-60); HEMOLYSIS < 15 (0-50); LDL Cholesterol Calculated 128 mg/dL (<100); Potassium 4.4 mmol/L (3.4-5.1); Sodium 141 mmol/L (137-145); Total Protein 6.5 g/dL (6.3-8.2); Triglycerides 192 mg/dL (35-150)
[2025-01-13 12:15] LABS: Hemoglobin A1C% w Est Avg Glu 5.1 % (4.0-6.0)
[2025-01-13 12:39] LABS: TSH w/ Reflex to FT4 2.16 uIU/mL (0.47-4.68)
== END ==
PROVIDERS: Family Provider Registered Nurse Diabetes Educator; PCP Registered Nurse Diabetes Educator; Referring Provider Registered Nurse Diabetes Educator; Visit Provider Registered Nurse Diabetes Educator
DX: R06.02 Shortness of breath (principal); R00.1 Bradycardia, unspecified; Z68.41 Body mass index [BMI] 40.0-44.9, adult; E78.5 Hyperlipidemia, unspecified; Z86.32 Personal history of gestational diabetes; Z83.3 Family history of diabetes mellitus
CPT/HCPCS: 36415; 80053; 80061; 83036; 84443; 85027

== ENCOUNTER → 2025-04-28 10:10 | Outpatient (CLI) | payer OTHER, SELFPAY ==
[2025-04-28 11:29] LABS: Cholesterol 173 mg/dL (140-199); HDL Cholesterol 33 mg/dL (40-60); LDL Cholesterol Calculated 120 mg/dL (<100); Triglycerides 101 mg/dL (35-150)
== END ==
PROVIDERS: Family Provider Registered Nurse Diabetes Educator; PCP Registered Nurse Diabetes Educator; Referring Provider Registered Nurse Diabetes Educator; Visit Provider Registered Nurse Diabetes Educator
DX: E78.5 Hyperlipidemia, unspecified (principal)
CPT/HCPCS: 36415; 80061

== ENCOUNTER 2025-05-16 08:40 | Day surgery (SDC) | payer OTHER, SELFPAY ==
--- NOTE | 2025-05-16 | PATH_ITS ---
[facility] Accession Number: [id number] No. of containers..01 Tissue . 01 Material submitted: . colon - SIGMOID POLYP . 01 Diagnosis: SIGMOID COLON POLYP: Tubular adenoma. MRV 05/24/2025 1522 Local . 01 Electronically signed: . Saul Najera MD, PhD, Pathologist NPI- [id number] . 01 Gross description: . SIGMOID POLYP: Received in formalin are 2 fragment(s) of dennison, soft tissue measuring 0.4 x 0.3 x 0.3 cm to 0.8 x 0.6 x 0.6 cm submitted entirely in 1 cassette(s) /RACHEL 05/23/2025 1746 Local . 01 Pathologist provided ICD-10: D12.5 . 01 CPT . 643198 Specimen Comment: A courtesy copy of this report has been sent to [phone] Performed at: [address] [id number] MD Jonnie Hawkins MD Phone: [phone]
[2025-05-16 09:32] VITALS: BP 128/71; PULSE 63; RESP 16; TEMP 36.2; O2SAT 100
[2025-05-16] MEDS: LACTATED RINGERS 1,000 ML 42 ML IV (09:42)
--- NOTE | 2025-05-16 10:03 | P.HP_ITS ---
History of Present Illness History of Present Illness Date Patient Seen: 05/16/25 Chief complaint: Colonoscopy Narrative: Colorectal cancer screening [facility] Medical History Increased risk of breast cancer Bradycardia BMI 40.0-44.9, adult Lichen sclerosus Dyslipidemia Vertigo (~2007) Acinic cell carcinoma History of gestational diabetes Obesity Surgical History Anesthesia History of surgery (~04/2014) Family History Father Dementia Frail elderly Cancer Diabetes mellitus History of heart disease Mental health problem Stroke Mother Cancer History of heart disease Sister Lupus Glaucoma Breast cancer Sister Rheumatoid arthritis Grandfather Cancer Grandmother Diabetes mellitus Stroke Social History Smoking Status: Former smoker Meds Home Medications and Allergies Allergies Allergy/AdvReac Type Severity Reaction Status Date / Time No Known Drug Allergies Allergy Verified 05/16/25 09:30 Exam Vital Signs (past 8 hours): - 05/16/25 09:32 Temperature 97.1 F L Pulse Rate 63 Respiratory Rate 16 Blood Pressure 128/71 Pulse Oximetry 100 Oxygen Delivery Method Room Air Oxygen Delivery Method Room Air Assessment & Plan Assessment & Plan narrative: Need for follow-up colon cancer screening. Risks, benefits, alternatives have been explained. Time-Based Coding :: [TOTAL MINUTES] spent with patient and on the chart (including review of chart, obtaining history, exam, reviewing outside data, placing orders, documenting exam and treatment plan, and counseling patient) on [DATE]. 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
--- NOTE | 2025-05-16 10:03 | PM.OP.COLON ---
Operative Date/Time/Diagnoses Date of procedure: 05/16/25 Time of procedure: 10:25 Pre-op diagnosis: See indication and findings Post-op diagnosis: same Procedure & Clinicians Study performed: Colonoscopy Same procedure(s) as scheduled: Yes Indications: Screening Surgeon: Sridhar Sanchez Anesthesia Type: Other Procedure Notes Procedure in detail: After informed consent was obtained the patient was placed in left lateral decubitus position. The video colonoscope was inserted into the rectum and slowly advanced cecum. On slow withdrawal mucosa was carefully examined. The scope was removed. The patient tolerated procedure well. Blood loss none Complications none Sedation mac Findings 1. 1 cm sessile polyp in the distal sigmoid cold snared and removed completely 2. Otherwise negative colonoscopy to cecum Will be in touch regarding the polyp results and what the interval follow-up should be.
[2025-05-16 10:28] VITALS: BP 110/60; PULSE 66; RESP 19; TEMP 36.1; O2SAT 96
[2025-05-16 10:35] VITALS: BP 110/63; PULSE 63; RESP 17; O2SAT 96
[2025-05-16 10:43] VITALS: BP 110/62; PULSE 65; RESP 15; TEMP 36.4; O2SAT 97
== END 2025-05-16 11:30 | disposition home or self-care (01) ==
PROVIDERS: PCP Registered Nurse Diabetes Educator; Referring Provider Internal Medicine Gastroenterology; Visit Provider Internal Medicine Gastroenterology
PROC: 0DJD8ZZ Inspection of Lower Intestinal Tract, Via Natural or Artificial Opening Endoscopic (ICD-10-PCS; CPT 45378; principal; 2025-05-16 10:00)
DX: Z12.11 Encounter for screening for malignant neoplasm of colon (principal); D12.5 Benign neoplasm of sigmoid colon; E66.9 Obesity, unspecified; Z68.41 Body mass index [BMI] 40.0-44.9, adult; Z87.891 Personal history of nicotine dependence
CPT/HCPCS: 45385; J2704